=== PATIENT | male | born 1990 | race Caucasian/White ===

== ENCOUNTER 2017-03-30 11:13 | Emergency (ER) | payer SELFPAY ==
[~2017-03-30] VITALS: Wt 58.0 kg
[2017-03-30] MEDS ORDERED: LORAZEPAM 2 MG INJ IM STA (11:17)
[2017-03-30] MEDS ORDERED: HALOPERIDOL 5 MG INJ IM STA (11:17)
[2017-03-30 11:50] LABS: ADD UMIC NO; URINE BILIRUBIN (Dip) NEGATIVE (NEGATIVE); URINE BLOOD (Dip) NEGATIVE (NEGATIVE); URINE COLOR LT. YELLOW (YELLOW); URINE GLUCOSE (Dip) NEGATIVE (NEGATIVE); URINE KETONES (Dip) TRACE (NEGATIVE); URINE LEUKOCYTE ESTERASE (Dip) NEGATIVE (NEGATIVE); URINE NITRITE (Dip) NEGATIVE (NEGATIVE); URINE TOTAL PROTEIN (Dip) NEGATIVE (NEGATIVE); URINE UROBILINOGEN (Dip) 0.2 E.U./dL (0.1-1.0)
[2017-03-30 12:12] LABS: BARBITURATES Negative (NEGATIVE); BENZODIAZEPINES Negative (NEGATIVE); CANNABINOIDS Positive (NEGATIVE); COCAINE Negative (NEGATIVE); OPIATES Negative (NEGATIVE)
[2017-03-30 12:18] LABS: ADD SCAN DIFF NO
--- NOTE | 2017-03-30 12:32 | RADRPT ---
PROCEDURE: CT Brain without. CLINICAL INDICATION: Altered mental status. TECHNIQUE: A CT of the brain was performed on multidetector high-resolution CT scanner utilizing a xial sections from the skull base through the vertex without contrast. The scan was reviewed in sof t tissue brain and high frequency resolution bone algorithm windows. Images were reviewed on a high -resolution PACS workstation. One or more the following does reduction techniques were utilized: Aut omated exposure control, adjustment of the mA/ or kV according to patient's size, or use of iterativ e reconstruction technique. The exam CTDI = 44.26 mGy and the DLP = 720.23 mGy-cm. COMPARISON: None available. FINDINGS: Multiple images are degraded by motion artifacts. The ventricles and sulci are age-appropriate. There is no intracranial hemorrhage, mass effect or mi dline shift. No abnormal intra-axial or extra-axial fluid collections are seen. The baig/white cornelius er differentiation is preserved. No acute skull abnormality is noted. The visualized paranasal sinus es are essentially clear. IMPRESSION: 1. Suboptimal motion degraded study. Otherwise no gross acute intracranial hemorrhage, transcortic al infarction or mass effect. RPTAT: AA .Shayla Nichols MD, MD Date Time Electronically viewed and signed by .Shayla Nichols MD, MD on 03/30/2017 12:32 .N/
[2017-03-30 12:33] LABS: BASOPHIL # 0.1 10^3/ul (0.0-0.1); BASOPHILS % 0.8 % (0.0-2.0); HEMATOCRIT 40.8 % (42.0-52.0); HEMOGLOBIN 14.6 g/dl (14.0-18.0); LYMPHOCYTES % 30.4 % (15.0-51.0); MEAN CORPUSCULAR HEMOGLOBIN 30.6 pg (29.0-33.0); MEAN CORPUSCULAR HGB CONC 35.8 g/dl (32.0-37.0); MEAN CORPUSCULAR VOLUME 85.5 fl (82.0-101.0); MEAN PLATELET VOLUME 9.1 fl (7.4-10.4); MONOCYTE # 0.4 10^3/ul (0.3-0.9); NEUTROPHILS % 62.5 % (39.0-77.0); PLATELET COUNT 379 10^3/UL (140-415); RED BLOOD COUNT 4.77 10^6/ul (4.70-6.10); RED CELL DISTRIBUTION WIDTH 11.6 % (11.5-14.5); WHITE BLOOD COUNT 6.5 10^3/ul (4.8-10.8)
--- NOTE | 2017-03-30 12:42 | RADRPT ---
PROCEDURE: CT scan facial bones CLINICAL INDICATION: Trauma. Facial injury. Pain. Altered mental status. TECHNIQUE: CT scan of the face was performed on the a high-resolution multidetector CT scanner wit h multiple contiguous axial images obtained through the face. Coronal and sagittal reformatted imag es were obtained from the axial source images. Exam CTDI = 44.26 mGy and the DLP = 720.23 mGy-cm. COMPARISON: None available. FINDINGS: Acute mildly displaced fractures of bilateral nasal bones and right frontal process of the maxilla a re noted with associated overlying soft tissue swelling. The orbital globes are grossly unremarkable. There is leftward nasal septal deviation. Paranasal si nuses demonstrate mild scattered mucosal thickening or pronounced in ethmoid air cells/ frontoethmoi alyson recesses and maxillary sinuses. IMPRESSION: 1. Acute mildly displaced fractures of bilateral nasal bones and right frontal process of the maxil la with associated overlying soft tissue swelling. 2. Mild scattered paranasal sinus disease. RPTAT: AA .Shayla Nichols MD, Date Time Electronically viewed and signed by .Shayla Nichols MD, on 03/30/2017 12:41 .N/
[2017-03-30 12:51] LABS: ALANINE AMINOTRANSFERASE 33 IU/L (13-69); ALKALINE PHOSPHATASE 104 IU/L (42-121); ASPARTATE AMINO TRANSFERASE 46 IU/L (15-46); BILIRUBIN,INDIRECT 0.3 mg/dl (0-1.1); BILIRUBIN,TOTAL 0.3 mg/dl (0.2-1.3); BLOOD UREA NITROGEN 12 mg/dl (7-20); CALCIUM 8.8 mg/dl (8.4-10.2); CARBON DIOXIDE 22 mmol/L (21-31); CREATININE 0.78 mg/dl (0.61-1.24); GLUCOSE 172 mg/dl (70-220); TOTAL PROTEIN 7.6 g/dl (6.1-8.1)
[2017-03-30 12:55] LABS: ALBUMIN/GLOBULIN RATIO 1.45
[2017-03-30 12:56] LABS: ALBUMIN 4.5 g/dl (3.3-4.9); ANION GAP 23 (8-16); CHLORIDE 99 mmol/L (97-110); POTASSIUM 3.4 mmol/L (3.5-5.1); SODIUM 141 mmol/L (135-144)
[2017-03-30 13:11] LABS: ACETAMINOPHEN < 10.0 ug/ml (10.0-30.0); SALICYLATE < 1.0 mg/dl (5.0-30.0)
--- NOTE | 2017-03-30 15:09 | ERA ---
ER Documentation Chief Complaint Date/Time DATE: 03/30/17 TIME: 15:07 Chief Complaint ALOC TODAY NO TRAUMA. COMBATIVE AND ETOH. UNABLE TO BE COHERENT HPI Patient is a 18-year-old male who presents altered. Please note the history and physical exam is limited secondary to the patient's mental status. The patient was brought in by ambulance and police. The patient threatened medics. He was found on the street. He told other people called 911. Upon review of old medical records this is the patient's first visit to the emergency department. He admits to alcohol and methamphetamine. ROS All systems reviewed and are negative except as per history of present illness. Medications Home Meds Unable to Obtain Active Prescriptions or Reported Meds Allergies Allergies: Coded Allergies: Unknown: Unable to obtain (Unverified , 03/30/17) PMhx/Soc Medical and Surgical Hx: Unable to obtain Hx Alcohol Use: Yes Hx Substance Use: No Hx Tobacco Use: Yes Smoking Status: Current every day smoker FmHx Unable to obtain Physical Exam Vitals Vital Signs Date Time Temp Pulse Resp B/P Pulse Ox O2 Delivery O2 Flow Rate FiO2 03/30/17 12:51 98.6 96 16 110/58 95 03/30/17 12:36 98.0 97 16 110/59 98 03/30/17 12:21 98.2 100 18 121/63 97 03/30/17 12:06 98.2 99 20 128/82 96 03/30/17 11:51 98.5 98 22 141/61 98 03/30/17 11:36 99.0 110 22 152/83 97 03/30/17 11:34 98.6 140 22 144/88 98 Physical Exam Const: Altered and combative Head: Swelling to the nose and bilateral face Eyes: Normal Conjunctiva ENT: Normal External Ears, Nose and Mouth. Neck: Full range of motion..~ No meningismus. Resp: Clear to auscultation bilaterally Cardio: Regular rate and rhythm, no murmurs Abd: Soft, non tender, non distended. Normal bowel sounds Skin: No petechiae or rashes Back: No midline or flank tenderness Ext: No cyanosis, or edema Neur: Awake but combative Psych: Agitated and combative without following commands Result Diagram: 03/30/17 1214 03/30/17 1214 Results 24 hrs Laboratory Tests Test 03/30/17 11:20 5/7/17 12:14 Urine Color LT. YELLOW Urine Clarity CLEAR Urine pH 5.5 Urine Specific [place] 1.015 Urine Ketones TRACE Urine Nitrite NEGATIVE Urine Bilirubin NEGATIVE Urine Urobilinogen 0.2 E.U./dL Urine Leukocyte Esterase NEGATIVE Urine Hemoglobin NEGATIVE Urine Glucose NEGATIVE% Urine Total Protein NEGATIVE Urine Opiates Screen Negative Urine Barbiturates Negative Urine Amphetamines Screen Positive Urine Benzodiazepines Screen Negative Urine Cocaine Screen Negative Urine Cannabinoids Positive White Blood Count 6.510^3/ul Red Blood Count 4.7710^6/ul Hemoglobin 14.6g/dl Hematocrit 40.8% Mean Corpuscular Volume 85.5fl Mean Corpuscular Hemoglobin 30.6pg Mean Corpuscular Hemoglobin Concent 35.8g/dl Red Cell Distribution Width 11.6% Platelet Count 98447^3/UL Mean Platelet Volume 9.1fl Neutrophils % 62.5% Lymphocytes % 30.4% Monocytes % 6.0% Eosinophils % 0.0% Basophils % 0.8% Nucleated Red Blood Cells % 0.0/100WBC Neutrophils # 4.010^3/ul Lymphocytes # 2.010^3/ul Monocytes # 0.410^3/ul Eosinophils # 0.010^3/ul Basophils # 0.110^3/ul Nucleated Red Blood Cells # 0.010^3/ul Sodium Level 141mmol/L Potassium Level 3.4mmol/L Chloride Level 99mmol/L Carbon Dioxide Level 22mmol/L Anion Gap 23 Blood Urea Nitrogen 12mg/dl Creatinine 0.78mg/dl Glucose Level 172mg/dl Calcium Level 8.8mg/dl Total Bilirubin 0.3mg/dl Direct Bilirubin 0.00mg/dl Indirect Bilirubin 0.3mg/dl Aspartate Amino Transf (AST/SGOT) 46IU/L Alanine Aminotransferase (ALT/SGPT) 33IU/L Alkaline Phosphatase 104IU/L Total Protein 7.6g/dl Albumin 4.5g/dl Globulin 3.10g/dl Albumin/Globulin Ratio 1.45 Salicylates Level < 1.0mg/dl Acetaminophen Level < 10.0ug/ml Ethyl Alcohol Level 460.0mg/dl Current Medications Medications (Trade) Dose Ordered Sig/Leta Route PRN Reason Start Time Stop Time Status Last Admin Dose Admin Lorazepam (Ativan) 2 mg ONCE STAT IM 03/30/17 11:17 03/30/17 11:20 DC 03/30/17 11:30 Haloperidol (Haldol) 10 mg ONCE STAT IM 03/30/17 11:17 03/30/17 11:20 DC 03/30/17 11:30 Procedures/MDM CT brain shows no intracranial hemorrhage per radiology. Patient is a 26-year-old male who presents altered. He was found to have a significantly elevated alcohol level and his urine drug screen was positive for amphetamines as well. He needs to be sedated with Haldol and Ativan to protect himself and to protect staff. His other workup is basically negative with laboratory studies and CT scan of the brain which were normal. The patient will need reevaluation once he is clinically sober. He will be watched in the emergency department for a number of hours. He has had no respiratory compromise since he has been here in the emergency department. Critical Care: Time: 35 minutes excluding all billable procedures. Treatments/Evaluations: Close monitoring and treatment of unstable vital signs, cardiorespiratory, and neurologic status, while maintaining tight balance of fluid, respiratory, and cardiac interventions. Observation Note: Time: 4 hours Family Hx: Unable to obtain Evaluation: Multiple exams showed improving symptoms and no evidence of clinical decompensation. Departure Diagnosis: Primary Impression: Methamphetamine abuse Additional Impressions: Alcohol intoxication Qualified Code: F10.121 - Alcohol intoxication, with delirium Altered level of consciousness Condition: Fair Patient Instructions: Treating Drug Abuse and Addiction, Altered Loc Referrals: [facility] YOU HAVE RECEIVED A MEDICAL SCREENING EXAM AND THE RESULTS INDICATE THAT YOU DO NOT HAVE A CONDITION THAT REQUIRES URGENT TREATMENT IN THE EMERGENCY DEPARTMENT. FURTHER EVALUATION AND TREATMENT OF YOUR CONDITION CAN WAIT UNTIL YOU ARE SEEN IN YOUR DOCTORS OFFICE WITHIN THE NEXT 1-2 DAYS. IT IS YOUR RESPONSIBILITY TO MAKE AN APPOINTMENT FOR FOLOW-UP CARE. IF YOU HAVE A PRIMARY DOCTOR --you should call your primary doctor and schedule an appointment IF YOU DO NOT HAVE A PRIMARY DOCTOR YOU CAN CALL OUR PHYSICIAN REFERRAL HOTLINE AT IF YOU CAN NOT AFFORD TO SEE A PHYSICIAN YOU CAN CHOSE FROM THE FOLLOWING [facility] [id number] [facility]. [facility] [address] [facility] [address] [facility]. [facility] [address] [facility]. [facility] [address] [facility] [address] Additional Instructions: Call your primary care doctor TOMORROW for an appointment during the next 1-2 days.See the doctor sooner or return here if your condition worsens before your appointment time. JUDITH BYRD MD March 30, 2017 15:09
[2017-03-30 16:29] VITALS: BP 115/62; PULSE 69; RESP 16; TEMP 98.6
== END 2017-03-30 16:30 | disposition home or self-care (01) ==
LOC: E/R 11:13
DX: F15.10 Other stimulant abuse, uncomplicated (principal); R40.2242 Coma scale, best verbal response, confused conversation, at arrival to emergency department; F10.121 Alcohol abuse with intoxication delirium; F17.210 Nicotine dependence, cigarettes, uncomplicated; R40.2142 Coma scale, eyes open, spontaneous, at arrival to emergency department; R40.2362 Coma scale, best motor response, obeys commands, at arrival to emergency department
CPT/HCPCS: 36415; 70450; 70486; 80053; 80306; 80307; 81003; 85025; 96372; 99291; J1630; J2060